=== PATIENT | female | born 1985 | race Caucasian/White ===

== ENCOUNTER 2019-05-20 15:16 | Inpatient (IN) | payer OTHER ==
[~2019-05-20] VITALS: Ht 175.3 cm; Wt 60.1 kg
[~2019-05-20 15:16] MED LIST: Augmentin 875-1 EACH PO; Roxicodone5 MG PO
[2019-05-20 15:52] LABS: BASOPHILS ABSOLUTE AUTO 0.02 K/mm3 (0.00-0.23); BASOPHILS PERCENT AUTO 0 % (0-2); EOSINOPHILS PERCENT AUTO 0 % (0-6); Hematocrit 41.2 % (33.0-51.0); Hemoglobin 14.1 g/dL (11.5-16.0); IMMATURE GRAN ABSOLUTE AUTO 0.02 K/mm3 (0.00-0.10); IMMATURE GRAN PERCENT AUTO 0 % (0-1); LYMPHOCYTES ABSOLUTE AUTO 1.88 K/mm3 (0.84-5.20); LYMPHOCYTES PERCENT AUTO 17 % (21-46); MONOCYTES ABSOLUTE AUTO 0.84 K/mm3 (0.16-1.47); MONOCYTES PERCENT AUTO 7 % (4-13); Mean Corpuscular HGB 29.3 pg (26.0-34.0); Mean Corpuscular HGB Conc 34.2 g/dL (31.5-36.5); Mean Corpuscular Volume 86 fL (80-100); Mean Platelet Volume 10.9 fL (9.1-12.4); NEUTROPHILS ABSOLUTE AUTO 8.58 K/mm3 (1.96-9.15); NEUTROPHILS PERCENT AUTO 76 % (41-73); Platelet Count 239 K/mm3 (150-400); RDW Coefficient Variation 12.7 % (11.7-14.2); Red Blood Cell Count 4.81 M/mm3 (3.80-5.20); White Blood Cell Count 11.34 K/mm3 (4.00-11.30)
[2019-05-20 16:12] LABS: Alanine Aminotransfer (ALT/SGP 18 U/L (12-78); Albumin, Blood 3.8 g/dL (3.4-5.0); Alk Phos 51 U/L (50-136); Anion Gap 6 mmol/L (6-16); Aspartate Aminotrans (AST/SGOT 18 U/L (12-37); Bilirubin, Total 0.7 mg/dL (0.1-1.0); Blood Urea Nitrogen 6 mg/dL (8-24); Bun/Creatinine Ratio 9.8 (12.0-20.0); CO2, Blood 27 mmol/L (21-32); Calcium, Blood 8.7 mg/dL (8.5-10.1); Chloride, Blood 104 mmol/L (98-108); Creatinine, Blood 0.61 mg/dL (0.40-1.00); Globulin, Blood 3.8 g/dL (2.2-4.0); Glomerular Filtration Rate >60 (60-); Glucose, Blood 91 mg/dL (70-99); Potassium, Blood 3.6 mmol/L (3.5-5.5); Sodium, Blood 137 mmol/L (136-145); Total Protein, Blood 7.6 g/dL (6.4-8.2)
[2019-05-20] MEDS ORDERED: HAIR, SKIN AND1 EAC3 PO (17:03)
--- NOTE | 2019-05-20 18:21 | NUR ---
RECIEVED REPORT FROM ALENA ZHAO IN EMERGENCY DEPARTMENT. AWAITING PT ARRIVAL.
--- NOTE | 2019-05-20 19:28 | NUR ---
PT ARRIVED TO THE UNIT VIA WHEEL CHAIR. ORIENTATED TO THE ROOM, SNACK AND DRINK PROVIDED. NO COMPLAINTS AT THIS TIME.
--- NOTE | 2019-05-21 03:33 | NUR ---
SHIFT SUMMARY: PATIENT ADMISSION ASSESSMENT COMPLETED, PATIENT AND SPOUSE ORIENTED TO ROOM, CALL LIGHT AND HOSPITAL POLICIES. PATIENT SKIN C/D/I, INDEPENDENT MOBILITY, VSS. IV SITE PATENET, PAIN MEDICATIONS X3 THIS SHIFT, ICE PACKS USED FOR SWELLING PER PATIENT REQUEST. STANDING WEIGHT COMPLETED, CALL LIGHT USED APPROPRIATLY, BED LOW AND LOCKED, SPOUSE AT BEDSIDE.
[2019-05-21 04:49] LABS: BASOPHILS ABSOLUTE AUTO 0.01 K/mm3 (0.00-0.23); BASOPHILS PERCENT AUTO 0 % (0-2); EOSINOPHILS ABSOLUTE AUTO 0.01 K/mm3 (0.00-0.68); EOSINOPHILS PERCENT AUTO 0 % (0-6); Hematocrit 39.3 % (33.0-51.0); Hemoglobin 13.8 g/dL (11.5-16.0); IMMATURE GRAN ABSOLUTE AUTO 0.03 K/mm3 (0.00-0.10); IMMATURE GRAN PERCENT AUTO 0 % (0-1); LYMPHOCYTES ABSOLUTE AUTO 1.09 K/mm3 (0.84-5.20); LYMPHOCYTES PERCENT AUTO 10 % (21-46); MONOCYTES ABSOLUTE AUTO 0.51 K/mm3 (0.16-1.47); MONOCYTES PERCENT AUTO 5 % (4-13); Mean Corpuscular HGB 29.4 pg (26.0-34.0); Mean Corpuscular HGB Conc 35.1 g/dL (31.5-36.5); Mean Corpuscular Volume 84 fL (80-100); Mean Platelet Volume 11.1 fL (9.1-12.4); NEUTROPHILS ABSOLUTE AUTO 9.05 K/mm3 (1.96-9.15); NEUTROPHILS PERCENT AUTO 85 % (41-73); Platelet Count 216 K/mm3 (150-400); RDW Coefficient Variation 12.4 % (11.7-14.2); RDW Standard Deviation 37.8 fL (35.1-46.3)
--- NOTE | 2019-05-21 18:24 | NUR ---
PATIENT IS ALERT AND ORIENTED AND COOPERATIVE WITH CARE. PATIENT HELD ICE TO HER LEFT JAW ON AND OFF THROUGHOUT THE DAY. PAIN TREATED PER EMAR. HER FAMILY WAS AT THE BEDSIDE FOR MOST OF THE DAY. REDNESS AND SWELLING OF THE LEFT SIDE OF HER FACE FLUCTUATED THROUGHOUT THE DAY. PATINT MADE HER CONCERNS KNOWN. WILL CONTINUE TO MONITOR.
--- NOTE | 2019-05-22 05:22 | NUR ---
SHIFT SUMMARY AOX4. VSS. REPORTS 8/10 PAIN IN LEFT CHEEK/JAW, MEDICATED 2X W/OXYCODONE & 1X W/TYLENOL, STATES PAIN DECREASES TO 7/10 WHEN REASSESSED. LEFT CHEEK/JAW IS RED & SWOLLEN, PT STATES "THE SWELLING IS BETTER THAN BEFORE." PT HAS HELD ICE PACK TO JAW T/O NIGHT & REPORTS RELIEF W/ICE. IND IN ROOM. CALL LIGHT IN REACH. WCTM.
[2019-05-22 05:40] LABS: BASOPHILS ABSOLUTE AUTO 0.02 K/mm3 (0.00-0.23); BASOPHILS PERCENT AUTO 0 % (0-2); EOSINOPHILS PERCENT AUTO 0 % (0-6); Hematocrit 41.1 % (33.0-51.0); Hemoglobin 14.1 g/dL (11.5-16.0); IMMATURE GRAN ABSOLUTE AUTO 0.04 K/mm3 (0.00-0.10); IMMATURE GRAN PERCENT AUTO 0 % (0-1); LYMPHOCYTES ABSOLUTE AUTO 1.68 K/mm3 (0.84-5.20); LYMPHOCYTES PERCENT AUTO 13 % (21-46); MONOCYTES ABSOLUTE AUTO 0.69 K/mm3 (0.16-1.47); MONOCYTES PERCENT AUTO 5 % (4-13); Mean Corpuscular HGB 29.1 pg (26.0-34.0); Mean Corpuscular HGB Conc 34.3 g/dL (31.5-36.5); Mean Corpuscular Volume 85 fL (80-100); NEUTROPHILS ABSOLUTE AUTO 10.24 K/mm3 (1.96-9.15); NEUTROPHILS PERCENT AUTO 81 % (41-73); Platelet Count 236 K/mm3 (150-400); RDW Coefficient Variation 12.7 % (11.7-14.2); RDW Standard Deviation 39.1 fL (35.1-46.3); Red Blood Cell Count 4.85 M/mm3 (3.80-5.20); White Blood Cell Count 12.67 K/mm3 (4.00-11.30)
[2019-05-22 05:57] LABS: Anion Gap 6 mmol/L (6-16); Blood Urea Nitrogen 9 mg/dL (8-24); Bun/Creatinine Ratio 14.9 (12.0-20.0); CO2, Blood 25 mmol/L (21-32); Calcium, Blood 9.1 mg/dL (8.5-10.1); Chloride, Blood 107 mmol/L (98-108); Glomerular Filtration Rate >60 (60-); Glucose, Blood 107 mg/dL (70-99); Sodium, Blood 138 mmol/L (136-145)
--- NOTE | 2019-05-22 18:10 | NUR ---
PT CONTINUES TO HAVE PAIN TO HER MOUTH, SWELLING AND REDNESS PRESENT. ABX CHANGED BY DOCTOR. PT SWABBED FOR MRSA PER FAMILY REQUEST. TESTS PENDING. PT ALERT AND ORIENTED AND ABLE TO EXPRESS ANY NEEDS. CALL LIGHT WITHIN REACH.
[2019-05-23 05:43] LABS: BASOPHILS ABSOLUTE AUTO 0.02 K/mm3 (0.00-0.23); BASOPHILS PERCENT AUTO 0 % (0-2); EOSINOPHILS PERCENT AUTO 0 % (0-6); Hematocrit 40.2 % (33.0-51.0); IMMATURE GRAN ABSOLUTE AUTO 0.03 K/mm3 (0.00-0.10); IMMATURE GRAN PERCENT AUTO 0 % (0-1); LYMPHOCYTES ABSOLUTE AUTO 3.39 K/mm3 (0.84-5.20); LYMPHOCYTES PERCENT AUTO 40 % (21-46); MONOCYTES ABSOLUTE AUTO 0.75 K/mm3 (0.16-1.47); MONOCYTES PERCENT AUTO 9 % (4-13); Mean Corpuscular HGB 29.2 pg (26.0-34.0); Mean Corpuscular HGB Conc 34.8 g/dL (31.5-36.5); Mean Corpuscular Volume 84 fL (80-100); Mean Platelet Volume 10.4 fL (9.1-12.4); NEUTROPHILS PERCENT AUTO 51 % (41-73); Platelet Count 257 K/mm3 (150-400); RDW Coefficient Variation 12.6 % (11.7-14.2); RDW Standard Deviation 38.4 fL (35.1-46.3); Red Blood Cell Count 4.79 M/mm3 (3.80-5.20); White Blood Cell Count 8.49 K/mm3 (4.00-11.30)
[2019-05-23 06:05] LABS: Alanine Aminotransfer (ALT/SGP 15 U/L (12-78); Albumin, Blood 3.1 g/dL (3.4-5.0); Albumin/Globulin Ratio 0.8 (0.8-1.8); Alk Phos 40 U/L (50-136); Anion Gap 7 mmol/L (6-16); Aspartate Aminotrans (AST/SGOT 8 U/L (12-37); Bilirubin, Total 0.5 mg/dL (0.1-1.0); Blood Urea Nitrogen 13 mg/dL (8-24); Bun/Creatinine Ratio 17.3 (12.0-20.0); CO2, Blood 26 mmol/L (21-32); Calcium, Blood 8.7 mg/dL (8.5-10.1); Chloride, Blood 105 mmol/L (98-108); Creatinine, Blood 0.75 mg/dL (0.40-1.00); Globulin, Blood 3.8 g/dL (2.2-4.0); Glomerular Filtration Rate >60 (60-); Glucose, Blood 78 mg/dL (70-99); Potassium, Blood 3.5 mmol/L (3.5-5.5); Sodium, Blood 138 mmol/L (136-145); Total Protein, Blood 6.9 g/dL (6.4-8.2)
--- NOTE | 2019-05-23 06:33 | NUR ---
SHIFT SUMMARY AOX4. VSS. SWELLING & REDNESS IN L CHEEK/JAW HAS DECREASED GREATLY SINCE PREVIOUS NIGHT, STILL WARM TO TOUCH. REPORTS 6-12/26 PAIN IN L CHEEK MEDICATED W/SCHEDULED TORADOL & 3X W/OXYCODONE PER ORDERS, PAIN HAD DECREASED ALL THE WAY TO 3/10 UNTIL THIS AM WHEN IT WAS BACK UP TO 8/10. CALL LIGHT IN REACH. TM.
--- NOTE | 2019-05-23 17:23 | NUR ---
PT MET WITH ENT THIS SHIFT TO DISCUSS OPTIONS. SWELLING HAS REMAINED THE SAME. SHE IS ALERT AND ORIENTED
--- NOTE | 2019-05-23 20:17 | NUR ---
OSEAS IS RESTING WATCHING TV. STATES PAIN IS BACK UP TO 7/10 IN JAW AND FACE. DENIES ANY TROUBLE SWALLOWING, STATES JUST PAINFUL AT TIMES TO EAT. NO DRAINAGE FROM ABCESS NOTED. OFFERED WARM COMPRESS, DENIED AT THIS TIME. IS ABLE TO DRINK COLD WATER THAT HELPS. DENIES ANY OTHER COMPLAINTS. MEDICATED FOR PAIN. CALL LIGHT IN REACH. WILL CONTINUE TO MONITOR.
--- NOTE | 2019-05-24 05:30 | NUR ---
SHIFT SUMMARY: OSEAS VS HAVE BEEN STABLE. PAIN HAS BEEN CONTROLLED WITH CURRENT TREATMENT. IV HAS REMAINED PATENT AND ANTIBOTICS INFUSED WITH NO DIFFICULTY. SHE IS INDEPENDANT IN THE ROOM, HAS NOT HAD ANY COMPLAINTS OR NEEDS TONIGHT. SLEPT THROUGHOUT THE SHIFT COMFORTABLY. SWELLING TO THE FACE IS STILL NOTED, ALONG WITH TENDERNESS AND PAIN WHEN SHE TALKS. NO OTHER CHANGES OCCURRED THIS SHIFT. CALL LIGHT REMAINED IN REACH.
[2019-05-24 05:31] LABS: BASOPHILS ABSOLUTE AUTO 0.03 K/mm3 (0.00-0.23); BASOPHILS PERCENT AUTO 0 % (0-2); EOSINOPHILS PERCENT AUTO 0 % (0-6); Hematocrit 40.5 % (33.0-51.0); Hemoglobin 13.7 g/dL (11.5-16.0); IMMATURE GRAN ABSOLUTE AUTO 0.04 K/mm3 (0.00-0.10); IMMATURE GRAN PERCENT AUTO 1 % (0-1); LYMPHOCYTES PERCENT AUTO 36 % (21-46); MONOCYTES ABSOLUTE AUTO 0.72 K/mm3 (0.16-1.47); MONOCYTES PERCENT AUTO 9 % (4-13); Mean Corpuscular HGB 28.8 pg (26.0-34.0); Mean Corpuscular HGB Conc 33.8 g/dL (31.5-36.5); Mean Corpuscular Volume 85 fL (80-100); Mean Platelet Volume 10.6 fL (9.1-12.4); NEUTROPHILS ABSOLUTE AUTO 4.36 K/mm3 (1.96-9.15); NEUTROPHILS PERCENT AUTO 54 % (41-73); Platelet Count 230 K/mm3 (150-400); RDW Coefficient Variation 12.7 % (11.7-14.2); RDW Standard Deviation 39.8 fL (35.1-46.3); Red Blood Cell Count 4.76 M/mm3 (3.80-5.20); White Blood Cell Count 8.05 K/mm3 (4.00-11.30)
[2019-05-24] MEDS ORDERED: Vsl#3 Capsule1 EACH PO (09:44)
[2019-05-24] MEDS ORDERED: ROXICODONE5 MG PO (09:46)
[2019-05-24] MEDS ORDERED: AMOCLA875 PO (09:47)
--- NOTE | 2019-05-24 11:31 | NUR ---
DISCHARGE SUMMARY PT DISCHARGED TO HOME. PT LEFT ROOM AT THIS TIME VIA WHEELCHAIR WITH MANIFOLD OPERATOR ESCORT. IV DC'D AND BELONGINGS RETURNED. PT EDUCATED ON ALL DISCHARGE INSTRUCTIONS, ALL QUESTIONS ANSWERED. PT AGREES TO FOLLOW UP WITH DR. AKBAR. PT DOES NOT WANT TO GO BACK TO THE DENTIST WHO DID THE ROOT CANAL. PT EDUCATED ON MEDICATIONS AND INSTRUCTED TO TAKE ANTIBIOTICS UNTIL COMPLETION.
== END 2019-05-24 11:31 | disposition home or self-care (01) | DRG 158 ==
LOC: ER 15:16 → MEDS 17:01
PROVIDERS: Internal Medicine; Physician Assistant; ADMIT Internal Medicine
DX: K05.219 Aggressive periodontitis, localized, unspecified severity (principal); L03.211 Cellulitis of face; J01.00 Acute maxillary sinusitis, unspecified
CPT/HCPCS: 36415; 70487; 80048; 80053; 85025; 85651; 96365-59; 96375-59; 99284-25; A9270; J1100; J1650; J1885; J1956; J2405; J2543; Q9967

== ENCOUNTER → 2019-08-04 | Outpatient (CLI) | payer OTHER ==
[~2019-08-04] MED LIST changes: +AMOCLA875 PO; +HAIR, SKIN AND1 EAC3 PO; +ROXICODONE5 MG PO; +Vsl#3 Capsule1 EACH PO
== END | disposition home or self-care (01) ==
LOC: LAB EV 16:31 → LAB SHORT 16:31
DX: T22.011A Burn of unspecified degree of right forearm, initial encounter (principal)
CPT/HCPCS: 87070; 87205

== ENCOUNTER → 2021-02-08 | Outpatient (CLI) | payer OTHER | END | disposition home or self-care (01) | LOC: LAB SHORT 16:29 → LAB 16:29 | DX: N39.0 Urinary tract infection, site not specified (principal) | CPT/HCPCS: 87077; 87086; 87186 ==

== ENCOUNTER → 2021-11-12 | Outpatient (CLI) | payer OTHER | END | disposition home or self-care (01) | LOC: LAB 17:03 → LAB SHORT 17:03 | DX: K52.9 Noninfective gastroenteritis and colitis, unspecified (principal); R14.0 Abdominal distension (gaseous); R63.4 Abnormal weight loss | CPT/HCPCS: 82653 ==

== ENCOUNTER → 2021-11-14 | Outpatient (CLI) | payer OTHER | END | disposition home or self-care (01) | LOC: LAB 16:46 → LAB SHORT 16:46 | DX: K52.9 Noninfective gastroenteritis and colitis, unspecified (principal); R63.4 Abnormal weight loss; R14.0 Abdominal distension (gaseous) | CPT/HCPCS: 83993 ==

== ENCOUNTER → 2021-11-22 | Outpatient (CLI) | payer OTHER | END | disposition home or self-care (01) | LOC: LAB 08:00 → LAB SHORT 08:00 | DX: K52.9 Noninfective gastroenteritis and colitis, unspecified (principal); R14.0 Abdominal distension (gaseous); R63.4 Abnormal weight loss | CPT/HCPCS: 87177; 87209 ==

== ENCOUNTER → 2022-05-04 | Outpatient (CLI) | payer OTHER ==
[~2022-05-04] MED LIST changes: +CEPH500 PO; +FLUO10 PO
[2022-05-04 14:53] LABS: Osmolality, Urine 71 mos/kg (15-1400)
[2022-05-04 15:13] LABS: Sodium, Urine, Random 16 mmol/L (20-110)
== END | disposition home or self-care (01) ==
LOC: LAB 11:50 → LAB SHORT 11:50
PROVIDERS: Family Medicine
DX: E87.1 Hypo-osmolality and hyponatremia (principal)
CPT/HCPCS: 83935; 84300